=== PATIENT | female | born 1980 | race American Indian/Alaskan Native ===

== ENCOUNTER 2016-06-21 00:13 | Emergency (ER) | payer BC ==
[2016-06-21 00:29] VITALS: BP 133/94
--- NOTE | 2016-06-21 09:29 | XRay Report ---
Single view chest: History: Cough. Findings: Normal cardiomediastinal silhouette. Trachea is midline. No consolidation, pneumothorax or pleural effusion. Impression: No acute cardiopulmonary findings.
--- NOTE | 2016-06-22 18:55 | ED Elopement Review ---
ED Pt Elopement review - Call Back decision Pt Call Back Decision: No action required
== END 2016-06-21 00:35 | disposition left against medical advice (07) ==
LOC: ED 00:13
DX: R05 Cough (principal); R51 Headache; R07.9 Chest pain, unspecified; Z53.21 Procedure and treatment not carried out due to patient leaving prior to being seen by health care provider
CPT/HCPCS: 71020